=== PATIENT | male | born 1980 | race African-American/Black ===

== ENCOUNTER 2017-02-26 21:58 | Emergency (ER) | payer OTHER ==
--- NOTE | 2017-02-26 22:18 | ED Physician Documentation ---
General Adult - HISTORIAN Historian: patient - HPI Stated Complaint: abdominal pain Chief Complaint: General Adult Onset: days ago Timing: still present Severity: moderate Further Comments: yes (Pt is a 36 yo aa male with abdominal pain who presents with markedly elevated blood pressure, BP = 250/146. Pt states that he has had elevated bp since age 17 and has been prescribed a number of different medications for bp "none of which worked," so that he stopped taking them. Pt says also that most bp meds have not worked for members of his family. Pt has hx of [place] x 3 with cardiac stents in 2012. Pt has been having abd pain for > 1 week, and was seen at [facility] ER a week ago and started on Ranitidine. Pain improved/resolved for several days, but now has returned. Pt was also found to have elevated bp at that time and was started on Lisinopril 50 mg po qd and HCTZ 12.5 mg po qd. Pt states that he has been taking these medications and took them today. Pt states that his bp is increasingly elevated when he is in pain and that his abd pain is increasing his bp now.) - ROS CONST: no problems EYES/ENT: none GI/: abdominal pain, nausea MS/SKIN/LYMPH: none NEURO/PSYCH: headache (mild-mod) - PAST HX Past History: AMI (x3 with stents 2012), hypertension (since age 17), other ( GERD) Surgeries/Procedures: cardiac stent Allergies/Adverse Reactions: Allergies Allergy/AdvReac Type Severity Reaction Status Date / Time Penicillins AdvReac Vomiting Verified 02/26/17 22:25 tramadol AdvReac Vomiting Verified 02/26/17 22:25 Home Medications: Ambulatory Orders Medication Instructions Recorded Hydrochlorothiazide [Hydrodiuril] 12.5 mg PO QDAY 02/26/17 Lisinopril [Zestril] 50 mg PO QDAY 02/26/17 Ranitidine HCl 150 mg PO QDAY 02/26/17 - SOCIAL HX Smoking History: cigarettes Alcohol Use: occasionally Drug Use: marijuana - FAMILY HX Family History: Yes (Mother & Father with refractory bp) - VITAL SIGNS Vital Signs: Vital Signs Temp Pulse Resp BP Pulse Ox 199/133 02/01/16 14:03 - REVIEWED ASSESSMENTS Nursing Assessment Reviewed: Yes Vitals Reviewed: Yes Progress - Progress Progress: BP 250/143 Metoprolol 5 mg IV no significant bp change zofran 4 mg IV Dilaudid 1 mg IV Diltiazem 20 mg IV BP 250/143 --> 186/139 BP --> 202/122 Diltiazem ER 24H 240 mg po Diltiazem 20 mg IV BP 202/122 --> 194/130 Protonix 40 mg IV GI cocktail, no change in abd pain Dilaudid 1 mg IV abd pain improved, BP --> 200/118 Pt refuses transfer. Clonidine 0.1 mg BP 193/134, 30 min after Clonidine Pt decided to leave [place], after being urged to transfer to [facility] or [facility] for evaluation and management of markedly elevated refractory bp. ? etiology of epigastic pain ? gall bladder dz. Pain resolved for a time after ER visit to [facility] last week and then returned. Pt has f/u appointment tomorrow to establish care with Dr. Anne at [facility] in [place]. Rx Diltiazem ER 24H 240 mg po qd. Pt has a home bp monitor and is advised to keep a bp log. Continue Lisinopril for elevated bp. F/u Dr. Anne. - EKG/XRAY/CT EKG: NSR (HR=78; LVH; RBBB; non-specific T-wave abnormality) XRAY: chest (no active disease), abdomen (negative) General Adult Physical Exam - PHYSICAL EXAM GENERAL APPEARANCE: mild distress EENT: pharynx normal NECK: normal inspection, supple RESPIRATORY: no resp distress, chest non-tender, breath sounds normal CVS: reg rate & rhythm, heart sounds normal ABDOMEN: soft, normal bowel sounds, tenderness (mild-moderate epigastric tenderness) SKIN: warm/dry, normal color EXTREMITIES: non-tender, normal range of motion, no evidence of injury NEURO: oriented X3, motor nml, sensation nml Discharge Clincal Impression: High blood pressure Qualifiers: Hypertension type: unspecified Qualified Code(s): I10 - Essential (primary) hypertension Abdominal pain Qualifiers: Abdominal location: epigastric Qualified Code(s): R10.13 - Epigastric pain Referrals: Primary Doctor,No [REFERRING] - Home Medications: Ambulatory Orders Hydrochlorothiazide [Hydrodiuril] 12.5 mg PO QDAY 02/26/17 Lisinopril [Zestril] 50 mg PO QDAY 02/26/17 Ranitidine HCl 150 mg PO QDAY 02/26/17 Condition: Fair Disposition: 07 AGAINST MEDICAL ADVICE Decision to Admit: NO Decision Time: 02:20
[2017-02-26] MEDS ORDERED: HYDROmorphone HCL/PF 1 MG/ML DISP.SYRIN ONE (22:26)
[2017-02-26] MEDS ORDERED: ONDANSETRON HCL/PF 4 MG/ 2ML VIAL ONE (22:26)
[2017-02-26] MEDS: ONDANSETRON HCL/PF 4 MG/ 2ML VIAL IVP ONE (22:32)
[2017-02-26] MEDS: HYDROmorphone HCL/PF 1 MG/ML DISP.SYRIN IVP ONE (22:32)
[2017-02-26 22:33] LABS: BASOPHILS % 0.5 (0.0-1.5); EOSINOPHILS % 1.1 % (0.0-6.8); MEAN CORPUSCULAR HEMOGLOBIN 29.5 pg (28.0-34.0); MEAN CORPUSCULAR VOLUME 92.9 fl (80.0-100.0); NEUTROPHILS # 5.1 # k/uL (1.4-7.7)
[2017-02-26 22:45] LABS: eGFR (African) > 60; eGFR (Non-African) > 60
[2017-02-26] MEDS: METOPROLOL TARTRATE 5 MG/5 ML VIAL IVP ONE (22:56)
[2017-02-26] MEDS ORDERED: DILTIAZEM HCL 25 MG/ 5ML VIAL ONE (22:59)
[2017-02-26] MEDS: DILTIAZEM HCL 25 MG/ 5ML VIAL IVP ONE (23:10)
[2017-02-26] MEDS ORDERED: DILTIAZEM HCL 120 MG CAP.ER.24H ONE (23:56)
[2017-02-27] MEDS: DILTIAZEM HCL 120 MG CAP.ER.24H PO SCH (00:06)
[2017-02-27] MEDS: PANTOPRAZOLE SODIUM 40 MG in 0.9 % SODIUM CHLORIDE 50 ML IV SCH (00:13)
[2017-02-27] MEDS: DILTIAZEM HCL 25 MG/ 5ML VIAL IVP ONE (00:22)
[2017-02-27] MEDS: HYDROmorphone HCL/PF 1 MG/ML DISP.SYRIN IVP ONE (01:30)
[2017-02-27] MEDS ORDERED: Lidocaine 2%Visc 15ml 20 MG/ML UDC ONE (01:40)
[2017-02-27] MEDS ORDERED: MAG HYDROX/AL HYDROX/SIMETH 30 ML UDC PO ONE (01:40)
[2017-02-27] MEDS: MAG HYDROX/AL HYDROX/SIMETH 30 ML, Lidocaine 2%Visc 15ml 20 MG, PHENobarb/HYOSCY/ATROPI... PO ONE ×3 (01:45)
[2017-02-27] MEDS ORDERED: CloNIDine HCL 0.1 MG TABLET PO ONE (02:01)
[2017-02-27] MEDS: CloNIDine HCL 0.1 MG TABLET PO ONE (02:04)
[2017-02-27 02:46] VITALS: BP 193/134
[2017-02-27 05:24] LABS: APPEARANCE,URINE CLEAR (CLEAR); COLOR,URINE YELLOW (YELLOW); OCCULT BLOOD,URINE NEGATIVE (NEGATIVE); UROBILINOGEN URINE 0.2 Eu (0.2-1.0)
[2017-02-27 05:40] LABS: AMPHETAMINE NEGATIVE ng/mL (<1000); BARBITURATES NEGATIVE ng/mL (<300); CANNABINOIDS NON NEGATIVE ng/mL (< 50); COCAINE NEGATIVE ng/mL (<150); METHAMPHETAMINE NEGATIVE ng/mL (<1000); METHYLENEDIOXYMETHAMPHETAMINE NEGATIVE ng/mL (<500); MORPHINE NON NEGATIVE ng/mL (<300)
--- NOTE | 2017-02-27 06:02 | Diagnostic Imaging Report ---
JOSE RAUL LEE [facility] [address] [facility] [address] [address] Report Submission Date: Feb 26, 2017 11:31:58 PM CDT Patient Study Name: CARO JOHNSON Date: Feb 26, 2017 11:10:19 PM CDT Modality Type: CR Gender: M Description: ABDOMEN : 78 Institution: [facility] Physician: JOSE RAUL LEE Abdomen - one-view Clinical history: Epigastric and periumbilical pain. Findings: Examination of the abdomen in single AP view demonstrates gas and stool in the colon. There is no evidence of obstruction. Bony structures are intact. There are no unusual intra-abdominal calcifications. Impression: 1. Negative abdomen. Electronically signed on Feb 26, 2017 11:31:58 PM CDT by: Raul VAZQUEZ
--- NOTE | 2017-02-27 06:02 | Diagnostic Imaging Report ---
JOSE RAUL LEE [facility] [address] [facility] [address] [address] Report Submission Date: Feb 26, 2017 11:31:08 PM CDT Patient Study Name: CARO JOHNSON Date: Feb 26, 2017 11:11:50 PM CDT Modality Type: CR Gender: M Description: CHEST : 78 Institution: [facility] Physician: JOSE RAUL LEE Chest - two views Clinical history: Abdominal pain. Hypertension. Findings: Examination of the chest in PA and lateral views demonstrates lungs to be clear. Cardiovascular and mediastinal silhouettes are within normal limits. Monitor leads superimpose the chest. Impression: 1. No active disease. Electronically signed on Feb 26, 2017 11:31:08 PM CDT by: Raul VAZQUEZ
== END 2017-02-27 02:20 | disposition left against medical advice (07) ==
LOC: ED 21:58
DX: R10.9 Unspecified abdominal pain (principal); I10 Essential (primary) hypertension
CPT/HCPCS: 71020; 74000; 80053; 82150; 82550; 82553; 84484; 85025; J1170; J2405; J3490; 80377; 81002; 96372; 99283; A9270-GY; G0481; S1016

== ENCOUNTER 2017-05-07 10:43 | Emergency (ER) | payer OTHER ==
--- NOTE | 2017-05-07 11:04 | ED Physician Documentation ---
General Adult - HISTORIAN Historian: patient - HPI Stated Complaint: swollen lip Chief Complaint: General Adult Onset: days ago (1) Timing: still present Severity: moderate Further Comments: yes (Pt is a 36 male with upper lip swelling. Pt thinks he may have been bitten by an insect. Pt has expressed as small amount of fluid from the swollen area. Swelling is not painful. No fever or other systemic sx. Pt presents with elevated bp and states that he needs to order picker his HTN meds.) - ROS CONST: no problems EYES/ENT: other (upper lip swelling) CVS/RESP: other (htn) GI/: none MS/SKIN/LYMPH: none - PAST HX Past History: AMI (x3), hypertension (refractory htn), other (GERD) Surgeries/Procedures: cardiac stent, other (hernia) Allergies/Adverse Reactions: Allergies Allergy/AdvReac Type Severity Reaction Status Date / Time Penicillins AdvReac Vomiting Verified 05/07/17 10:52 tramadol AdvReac Vomiting Verified 05/07/17 10:52 Home Medications: Ambulatory Orders Medication Instructions Recorded Hydrochlorothiazide [Hydrodiuril] 12.5 mg PO QDAY 02/26/17 Lisinopril [Zestril] 50 mg PO QDAY 02/26/17 Doxycycline Monohydrate 100 mg PO Q12H #20 tablet 05/07/17 - SOCIAL HX Smoking History: cigarettes - FAMILY HX Family History: Yes (HTN) - VITAL SIGNS Vital Signs: Vital Signs Temp Pulse Resp BP Pulse Ox 98.2 F 87 16 211/170 96 05/07/17 10:53 05/07/17 10:53 05/07/17 10:53 05/07/17 10:53 05/07/17 10:53 - REVIEWED ASSESSMENTS Nursing Assessment Reviewed: Yes Vitals Reviewed: Yes Progress - Progress Progress: Rx Doxycycline 100 mg. Take one tablet by mouth every 12 hrs for 10 days. Refill if symptoms are improved but not completely resolved after 10 days. If symptoms do not improve follow up with primary provider or literacy specialist. Refill bp meds today as planned. General Adult Physical Exam - PHYSICAL EXAM GENERAL APPEARANCE: mild distress NECK: normal inspection, supple, lymphadenopathy RESPIRATORY: no resp distress, chest non-tender, breath sounds normal CVS: reg rate & rhythm, heart sounds normal BACK: normal inspection SKIN: other (upper lip swelling) EXTREMITIES: non-tender, normal range of motion, no evidence of injury NEURO: oriented X3, motor nml, sensation nml Discharge Clincal Impression: upper lip abscess High blood pressure Qualifiers: Hypertension type: unspecified Qualified Code(s): I10 - Essential (primary) hypertension Prescriptions: Doxycycline Monohydrate 100 mg PO Q12H #20 tablet Referrals: Silvano Anne MD [Primary Care Provider] - Condition: Stable Disposition: 01 HOME, SELF-CARE Decision to Admit: NO Decision Time: 11:33
[2017-05-07 11:18] VITALS: BP 214/172
== END 2017-05-07 11:15 | disposition home or self-care (01) ==
LOC: ED 10:43
DX: K13.0 Diseases of lips (principal); I10 Essential (primary) hypertension
CPT/HCPCS: 87070; 99283

== ENCOUNTER 2018-02-24 19:13 | Emergency (ER) | payer SELFPAY ==
[2018-02-24 19:48] LABS: BASOPHILS % 0.3 (0.0-1.5); EOSINOPHILS % 0.6 % (0.0-6.8); MEAN CORPUSCULAR HEMOGLOBIN 30.5 pg (28.0-34.0); MEAN CORPUSCULAR VOLUME 92.8 fl (80.0-100.0); MONOCYTES % 4.3 % (0.0-11.0)
[2018-02-24 20:01] LABS: eGFR (African) > 60; eGFR (Non-African) > 60
[2018-02-24] MEDS: MAG HYDROX/ALUMINUM HYD/SIMETH 30 ML, Lidocaine 2%Visc 15ml 20 MG, PHENobarb/HYOSCY/ATR... PO ONE ×3 (20:04)
--- NOTE | 2018-02-24 20:04 | ED Physician Documentation ---
General Adult - HISTORIAN Historian: patient, other (old records) - HPI Stated Complaint: "chest pain, Nausea" Chief Complaint: General Adult Additional Information: Epigastric and sternal CP since noon today. Stabbing and also feels like someone sitting on his chest. Waxes and wanes, but hasn't gone away. Standing in hot shower makes the pain better. Hasn't found anything that makes pain worse. Had similar pain two months ago and told at [facility] that it was his gall bladder. Had similar pain in 2013 when he had a heart attack and stents. Nauseated. Not SOB. Tells nurses he does not take BP med because he can't afford them. BP 232/100. Smokes marijuana daily. Drinking in a bar last evening. Ate chicken strips yesterday. No food intake today. - ROS CONST: no problems - PAST HX Past History: other (above) Allergies/Adverse Reactions: Allergies Allergy/AdvReac Type Severity Reaction Status Date / Time nitroglycerin Allergy Mild Verified 02/24/18 19:27 [From Nitro-Bid] Penicillins AdvReac Vomiting Verified 02/24/18 19:24 tramadol AdvReac Vomiting Verified 02/24/18 19:24 Home Medications: Ambulatory Orders Medication Instructions Recorded Hydrochlorothiazide [Hydrodiuril] 12.5 mg PO QDAY 02/26/17 Lisinopril [Zestril] 50 mg PO QDAY 02/26/17 - SOCIAL HX Smoking History: cigarettes Alcohol Use: occasionally Drug Use: marijuana (daily) - FAMILY HX Family History: No - VITAL SIGNS Vital Signs: Vital Signs Temp Pulse Resp BP Pulse Ox 98.5 F 57 L 16 224/132 94 02/24/18 19:31 02/24/18 19:31 02/24/18 19:31 02/24/18 19:31 02/24/18 19:31 - REVIEWED ASSESSMENTS Nursing Assessment Reviewed: Yes Vitals Reviewed: Yes Progress - Progress Progress: 2134, Urine for drug screen discarded. Pt wants pain med and wants to see doctor. Offered to [id number] to enable physician visit. He declined. Wants pain med. BP not improved significantly after two doses of labetalol. Claims doctors have told him no BP meds will control his BP. Given toradol. EKG: sinus bradycardia, 58 BPM, LVH, no acute ischemic changes. 2200, says is ready to go and wants to sign out AMA. ED Results Lab/Radiology - Lab Results Lab Results: Lab Results 02/24/18 19:30 WBC 9.30 K/ul K/ul (4.00-12.00) RBC 5.27 M/ul H M/ul (3.90-5.20) Hgb 16.1 g/dL g/dL (12.0-18.0) Hct 48.9 % % (37.0-53.0) MCV 92.8 fl fl (80.0-100.0) MCH 30.5 pg pg (28.0-34.0) MCHC 32.8 g/dL g/dL (30.0-36.0) RDW 14.1 % % (11.3-14.3) Plt Count 204 K/mm3 K/mm3 (130-400) Neut % (Auto) 85.7 % H % (39.0-79.0) Lymph % (Auto) 8.4 % L % (16.0-50.0) Greer % (Auto) 4.3 % % (0.0-11.0) Eos % (Auto) 0.6 % % (0.0-6.8) Baso % (Auto) 0.3 (0.0-1.5) Neut # (Auto) 8.0 # k/uL H # k/uL (1.4-7.7) Lymph # (Auto) 0.8 # k/uL # k/uL (0.6-4.0) Greer # (Auto) 0.4 # k/uL # k/uL (0.0-0.9) Eos # (Auto) 0.1 # k/uL # k/uL (0.0-0.6) Baso # (Auto) 0.0 # k/uL # k/uL (0.0-0.5) Reactive Lymphs % 0.7 % % (0.0-5.0) Reactive Lymphs # 0.1 # k/uL # k/uL (0.0-0.8) - Orders Orders: ED Orders Category Date Time Status Continuous EKG monitoring Q1H Care 02/24/18 19:23 Active CHEST 1VIEW [RAD] Stat Exams 02/24/18 Taken CBC/PLATELET/DIFF Routine Lab 02/24/18 19:30 Completed CMP Routine Lab 02/24/18 19:30 Received TROPONIN I (cTnI) Stat Lab 02/24/18 19:30 Received URINALYSIS Routine Lab 02/24/18 Ordered 0.9 % Sodium Chloride [Normal Saline] 1,000 ml Med 02/24/18 19:26 Active IV Q2H 0.9 % Sodium Chloride [Sodium Chloride] 100 ml Med 02/24/18 19:52 Discontinued IV .STK-MED Labetalol HCl [Trandate] Med 02/24/18 19:50 Discontinued 10 mg IVP NOW STA Lidocaine 2%Visc 15ml [Xylocaine] Med 02/24/18 19:53 Discontinued 600 mg .ROUTE .STK-MED ONE Mag Hydrox/Aluminum Hyd/Simeth [Mylanta] Med 02/24/18 19:53 Discontinued 30 ml PO .STK-MED ONE Mag Hydrox/Aluminum Hyd/Simeth [Mylanta] 30 ml Med 02/24/18 19:23 Discontinued Lidocaine 2%Visc 15ml [Xylocaine] 20 mg PHENobarb/HYOSCY/ATROPINE/SCOP [] 10 ml PO NOW Ondansetron HCl/Pf [Zofran 4 mg/2 ml] Med 02/24/18 19:56 Once 4 mg IVP NOW ONE Pantoprazole Sodium [Protonix] Med 02/24/18 19:51 Discontinued 40 mg .ROUTE .STK-MED ONE Pantoprazole Sodium [Protonix] 40 mg Med 02/24/18 19:30 Discontinued 0.9 % Sodium Chloride [Sodium Chloride] 50 ml IV DAILY EKG WITH COMPARISON Stat Ther 02/24/18 Ordered General Adult Physical Exam - PHYSICAL EXAM GENERAL APPEARANCE: moderate distress EENT: eye inspection normal, ENT inspection normal, pharynx normal, no signs of dehydration NECK: normal inspection, supple RESPIRATORY: no resp distress, chest non-tender, breath sounds normal CVS: reg rate & rhythm, heart sounds normal, no murmur ABDOMEN: soft, normal bowel sounds, no distension, tenderness (positive Miguel' s sign) BACK: normal inspection, no CVA tenderness, other (no vertebral tenderness) SKIN: warm/dry, normal color EXTREMITIES: non-tender, no evidence of injury, no edema NEURO: CN's nml as tested, motor nml, sensation nml, cognition normal Discharge Clincal Impression: Drug-seeking behavior, Non-compliance Chest pain Qualifiers: Chest pain type: unspecified Qualified Code(s): R07.9 - Chest pain, unspecified Referrals: Silvano Anne MD [Primary Care Provider] - 2 Days Condition: Good Disposition: 07 AGAINST MEDICAL ADVICE Decision to Admit: NO Decision Time: 22:00
[2018-02-24] MEDS: 0.9 % SODIUM CHLORIDE 1,000 ML IV ONE (20:05)
[2018-02-24] MEDS: PANTOPRAZOLE SODIUM 40 MG in 0.9 % SODIUM CHLORIDE 50 ML IV ONE (20:06)
[2018-02-24] MEDS: ONDANSETRON HCL/PF 4 MG/ 2ML VIAL IVP ONE (20:10)
[2018-02-24] MEDS: PANTOPRAZOLE SODIUM INJ. 40 MG VIAL ONE ×2 (20:12→20:54)
[2018-02-24] MEDS: LABETALOL HCL 100MG/20ML VIAL IVP STA ×2 (20:49→20:51)
[2018-02-24] MEDS: 0.9 % SODIUM CHLORIDE 100 ML IV ONE (20:53)
[2018-02-24] MEDS: KETOROLAC TROMETHAMINE 30 MG/1ML VIAL IVP ONE (21:38)
[2018-02-24] MEDS: MAG HYDROX/ALUMINUM HYD/SIMETH 30 ML UDC PO ONE (21:58)
[2018-02-24] MEDS: Lidocaine 2%Visc 15ml 20 MG/ML UDC ONE (21:58)
[2018-02-25 01:13] VITALS: BP 224/120
--- NOTE | 2018-02-25 06:57 | Diagnostic Imaging Report ---
[facility] [address] [facility] [address] Report Submission Date: Feb 24, 2018 7:44:00 PM CDT Patient Study Name: CARO JOHNSON Date: Feb 24, 2018 7:24:00 PM CDT Modality Type: DX Gender: M Description: CHEST : 78 Institution: [facility] [place] [facility] Physician: ARGELIA GOMES - GAGANDEEP Portable chest History: Several hours of chest pain Findings: The lungs are clear and well expanded. Mild cardiomegaly is unchanged since 02/26/2017. Pulmonary vascularity is normal. There is no pleural effusion. Impression: Mild cardiomegaly without change. Electronically signed on Feb 24, 2018 7:44:00 PM CDT by: Shiraz VAZQUEZ
== END 2018-02-24 22:10 | disposition left against medical advice (07) ==
LOC: ED 19:13
DX: R07.9 Chest pain, unspecified (principal); Z72.89 Other problems related to lifestyle; Z53.9 Procedure and treatment not carried out, unspecified reason
CPT/HCPCS: 71045; 80053; 84484; 85025; 93005; A9270; J1885; J2405; J3490; J7030; 96365; 96366; 96368; 96372; 96375; 99284; S1016

== ENCOUNTER 2018-08-31 13:40 | Emergency (ER) | payer BC ==
[2018-08-31] MEDS ORDERED: LISINOPRIL 5 MG TABLET PO ONE (14:11)
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
[2018-08-31] MEDS ORDERED: HYDROCHLOROTHIAZIDE 25 MG TABLET PO ONE (14:23)
--- NOTE | 2018-08-31 14:56 | Diagnostic Imaging Report ---
<p>Your browser does not support iframes.</p> AC CHAPPELL [facility] [address] [facility].[address] [address] Report Submission Date: Aug 31, 2018 2:42:11 PM INSTRUMENTATION MANAGER Patient Study Name: CARO JOHNSON Date: Aug 31, 2018 2:13:07 PM INSTRUMENTATION MANAGER Modality Type: DX Gender: M Description: KNEE 3 VIEWS : 78 Institution: [facility] Physician: AC CHAPPELL Examination: Plain film knee History: FELL 1 MONTH AGO FURTHEST RIGHT SIDE OF RT KNEE Findings: 3 views of the right knee demonstrates normal cortical margins. No fracture. No dislocation. No joint effusion. No soft tissue irregularity. Impression: No acute appearing osseous abnormality Electronically signed on Aug 31, 2018 2:42:11 PM INSTRUMENTATION MANAGER by: Eddy VAZQUEZ
[2018-08-31] MEDS ORDERED: CloNIDine HCL 0.1 MG TABLET PO ONE (15:27)
[2018-08-31 16:14] VITALS: BP 205/151
[2018-09-01] MEDS ORDERED: HYDROCHLOROTHIAZIDE 25 MG TABLET PO ONE (14:12)
== END 2018-08-31 16:08 ==
LOC: ED 13:40
DX: I16.0 Hypertensive urgency (principal); M25.561 Pain in right knee; W00.9XXA Unspecified fall due to ice and snow, initial encounter
CPT/HCPCS: 73562; 99283

== ENCOUNTER 2018-12-11 03:15 | Emergency (ER) | payer SELFPAY ==
--- NOTE | 2018-12-11 03:21 | ED Physician Documentation ---
Chest Pain - HISTORIAN Historian: patient - HPI Stated Complaint: chest pain Chief Complaint: Chest Pain Onset: hours (3) Timing: sudden onset Duration: constant Last known Well Date: 12/11/18 Last Known Well Time: 22:00 Context: rest Severity: moderate Quality: pressure, tightness, stabbing Chest Pain Radiation: no radiation Chest Pain Signs/Symptoms: denies: nausea, vomiting, diaphoresis, cool extremi ties, dizziness, dyspnea, tachypnea, tachycardia, hypotension, palpitations, weakness Worsened By: nothing Relieved By: nothing Further Comments: yes (He states his chest pain started a few hours ago. He is yelling in pain. States the pain is "sharp" and "hurts" as he is yelling that he is in pain. Denies any injury. He did try nitro (spray) at home. He states this did not help his chest pain. He has had vodka and marijunia at home as well. He is a smoker. He reports two previous heart attacks.) - ROS CONST: none EYES/ENT: none SKIN/ENDO: none NEURO/PSYCH: none - PAST HX NM risk factors: hypertension DVT/PE Risk Factors: none TAD/AAA risk factors: none Neuro deficit: none GI disease: none Lung disease: none Surgeries/Procedures: none Allergies/Adverse Reactions: Allergies Allergy/AdvReac Type Severity Reaction Status Date / Time nitroglycerin Allergy Mild Verified 08/31/18 14:31 [From Nitro-Bid] Penicillins AdvReac Vomiting Verified 12/11/18 03:56 tramadol AdvReac Vomiting Verified 12/11/18 03:56 - SOCIAL HX Smoking History: cigarettes Alcohol Use: occasionally Drug Use: marijuana - FAMILY HX Family HX: none - VITAL SIGNS Vital Signs: Vital Signs Temp Pulse Resp BP Pulse Ox 205/151 08/31/18 16:08 - REVIEWED ASSESSMENTS Nursing Assessment Reviewed: Yes Vitals Reviewed: Yes Progress - Progress Progress: 0340: pt states the pain is improved to a 5/10 DG 0355: States pain has returned to a 10. DG 0405: Attempted to discuss the case and findings with the pt and he stated " I know you are not a real Dr" DG 0415: Discussed case with Didier at [facility] about possible transfer DG 0425: Dr Ivey at [facility] is accepting DG Chest Pain Physical Exam - EXAM General Appearance: alert, moderate distress EENT: eye inspection normal, ENT inspection normal, no signs of dehydration Neck: nml inspection Respiratory: no resp. distress, chest non-tender, nml breath sounds CVS: reg. rate & rhythm, no murmur, no gallop Abdomen: soft, normal bowel sounds, no distension Skin: warm/dry, normal color Extremities: non-tender, normal range of motion, no evidence of injury, no edema Neuro: oriented X3 Discharge Clincal Impression: Chest pain Qualifiers: Chest pain type: unspecified Qualified Code(s): R07.9 - Chest pain, unspecified Referrals: Primary Doctor,No [Primary Care Provider] - 2 Days Additional Instructions: Pt request to be transferred to [facility] - Dr Ivey is accepting Condition: Fair Disposition: 02 XFER SHT-TRM HOSP Decision to Admit: NO Date of Decison to Admit: 12/11/18 Decision Time: 04:30
[2018-12-11] MEDS: NITROGLYCERIN 0.4 MG TAB.SUBL SL ONE (03:35)
[2018-12-11] MEDS: ASPIRIN 81 MG CHEW TAB PO ONE (03:40)
[2018-12-11] MEDS: 0.9 % SODIUM CHLORIDE 1,000 ML IV ONE (03:40)
[2018-12-11] MEDS: MAG HYDROX/ALUMINUM HYD/SIMETH 30 ML, Lidocaine 2% Viscous 15 ML PO ONE ×2 (04:05)
[2018-12-11] MEDS: MORPHINE SULFATE 5 MG/ML ML IV ONE (04:33)
[2018-12-11] MEDS: POTASSIUM CHLORIDE 20 MEQ TABLET.ER PO ONE (04:35)
[2018-12-11] MEDS: ONDANSETRON HCL/PF 4 MG/ 2ML VIAL IVP ONE (04:39)
[2018-12-11 05:28] VITALS: BP 181/105
--- NOTE | 2018-12-11 05:55 | Diagnostic Imaging Report ---
ILIANA MI [facility] [address] [facility] [address] [place], [place]. [address] Report Submission Date: December 11, 2018 3:54:34 AM CDT Patient Study Name: CARO JOHNSON Date: December 11, 2018 3:37:32 AM CDT Modality Type: DX Gender: M Description: CHEST 1VIEW : 78 Institution: [facility] Physician: ILIANA MI Portable chest Clinical history: Chest pain. Findings: Examination of the chest in single portable AP view demonstrates the lungs to be clear. The cardiovascular and mediastinal silhouettes are within normal limits. Bony thorax is intact. Monitor leads superimpose the chest. Impression: 1. No active disease. Electronically signed on December 11, 2018 3:54:34 AM CDT by: Raul VAZQUEZ
[2018-12-11 06:55] LABS: BASOPHILS % 0.7 % (0.0-1.5); EOSINOPHILS % 2.3 % (0.0-6.8); MEAN CORPUSCULAR HEMOGLOBIN 30.3 pg (28.0-34.0); MONOCYTES % 8.9 % (0.0-11.0); NEUTROPHILS # 4.4 # k/uL (1.4-7.7)
[2018-12-11 06:58] LABS: eGFR (Non-African) > 60
== END 2018-12-11 05:20 | disposition short-term general hospital (02) ==
LOC: ED 03:15
DX: R07.9 Chest pain, unspecified (principal)
CPT/HCPCS: 71045; 80053; 80320; 84484; 85025; 93005; 96361; 96374; 96375; 99285; A9270; J2405; J7030; G0480; S1016